=== PATIENT | male | born 1930 | race Caucasian/White ===

== ENCOUNTER 2017-09-05 20:09 | Emergency (ER) | payer OTHER ==
[~2017-09-05] VITALS: Ht 165.1 cm; Wt 78.6 kg
[2017-09-05 21:03] LABS: APPEARANCE SL.HAZY ((CLEAR)); BILIRUBIN NEGATIVE; BLOOD MODERATE; COLOR YELLOW ((YELLOW)); GLUCOSE (STRIP) NEGATIVE; KETONES NEGATIVE; LEUKOCYTES MODERATE; NITRITE NEGATIVE; PROTEIN (STRIP) 30; SPECIFIC GRAVITY 1.017 (1.000-1.030); UROBILINOGEN 0.2 MG/DL (0.2-1.0)
[2017-09-05 21:24] LABS: BACTERIA 2+ /HPF; EPITHELIAL CELLS NONE SEEN /HPF; MUCUS 1+ /LPF; OTHER SPERM CELLS; UCUL ADDED? YES; WHITE BLOOD CELLS 15-20 /HPF (0-5)
[2017-09-05 22:32] LABS: HEMATOCRIT 27.2 % (38.0-50.0); HEMOGLOBIN 8.6 G/DL (12.5-16.6); MCH 27.5 PG (29.0-34.0); MCHC 31.6 G/DL (30.0-36.0); MCV 86.9 FL (86-99); PLATELET COUNT 196 K/uL (156-360); RBC DIS.WIDTH-CV 18.4 % (11.8-14.6); RBC DIS.WIDTH-SD 58.2 % (39-53); RED BLOOD COUNT 3.13 M/uL (4.00-5.50); WHITE BLOOD COUNT 13.5 K/uL (4.1-10.2)
[2017-09-05 22:41] LABS: CHLORIDE 103 mEq/L (99-109); POTASSIUM 4.5 mEq/L (3.7-5.4); SODIUM 135 mEq/L (136-147)
[2017-09-05 22:42] LABS: GLUCOSE 119 mg/dL (70-99)
[2017-09-05 22:46] LABS: CREATININE 1.4 mg/dL (0.6-1.3); GFR ESTIMATE (CALCULATED) 51 mL/min/ (58.99-99999)
[2017-09-05 22:47] LABS: UREA NITROGEN (BUN) 26 mg/dL (9-23)
[2017-09-06] MEDS ORDERED: CIPRO500 MG PO (00:22)
[2017-09-06 00:47] VITALS: BP 98/61
== END 2017-09-06 00:48 | disposition home or self-care (01) ==
LOC: EME 20:09 → EXP 20:09
PROVIDERS: Physician Assistant Medical
DX: N39.0 Urinary tract infection, site not specified (principal); Z95.2 Presence of prosthetic heart valve
CPT/HCPCS: 80048; 81003; 85027; 87086; 99281; 99284; J0696

== ENCOUNTER 2017-09-08 17:06 | Emergency (ER) | payer OTHER ==
[~2017-09-08] VITALS: Ht 170.2 cm; Wt 74.1 kg
[~2017-09-08 17:06] MED LIST: CIPRO500 MG PO
[2017-09-08 17:58] LABS: BASOPHIL (%) 0.3 % (0-1); EOSINOPHIL (%) 0.9 % (0-5); EOSINOPHIL COUNT 0.1 K/uL (0-0.3); HEMATOCRIT 26.5 % (38.0-50.0); HEMOGLOBIN 8.4 G/DL (12.5-16.6); LYMPHOCYTE (%) 11.8 % (15-42); LYMPHOCYTE COUNT 1.4 K/uL (1.0-2.8); MCH 27.5 PG (29.0-34.0); MCHC 31.7 G/DL (30.0-36.0); MCV 86.6 FL (86-99); MONOCYTE (%) 10.3 % (3-12); MONOCYTE COUNT 1.2 K/uL (0-0.8); NEUTROPHIL (%) 75.7 % (45-76); NEUTROPHIL COUNT 8.9 K/uL (1.8-6.4); NRBC (%) 0.2 /100 WBC (0-0); PLATELET COUNT 166 K/uL (156-360); RBC DIS.WIDTH-CV 18.8 % (11.8-14.6); RBC DIS.WIDTH-SD 59.7 % (39-53); RED BLOOD COUNT 3.06 M/uL (4.00-5.50); WHITE BLOOD COUNT 11.8 K/uL (4.1-10.2)
[2017-09-08 18:07] LABS: ALBUMIN 3.7 g/dL (3.2-4.8); CHLORIDE 101 mEq/L (99-109); POTASSIUM 4.2 mEq/L (3.7-5.4); SODIUM 133 mEq/L (136-147)
[2017-09-08 18:08] LABS: MAGNESIUM 1.9 mg/dL (1.3-2.7)
[2017-09-08 18:10] LABS: GLUCOSE 105 mg/dL (70-99); TOTAL PROTEIN 7.1 g/dL (6.4-8.3)
[2017-09-08 18:12] LABS: TOTAL BILIRUBIN 1.1 mg/dL (0.0-1.0)
[2017-09-08 18:13] LABS: ALKALINE PHOSPHATASE 107 IU/L (3-129); CREATININE 1.4 mg/dL (0.6-1.3); GFR ESTIMATE (CALCULATED) 51 mL/min/ (58.99-99999)
[2017-09-08 18:14] LABS: UREA NITROGEN (BUN) 22 mg/dL (9-23)
[2017-09-08 18:15] LABS: AST (GOT) 27 IU/L (2-34)
[2017-09-08 18:16] LABS: ALT (GPT) 8 IU/L (3-49)
[2017-09-08 18:19] LABS: TROP-I INTERPRETATION NEGATIVE; TROPONIN-I 0.13 ng/mL (0.0-0.30)
[2017-09-08 20:07] VITALS: BP 110/77
== END 2017-09-08 20:08 | disposition home or self-care (01) ==
LOC: EME 17:06
PROVIDERS: Emergency Medicine
DX: R06.02 Shortness of breath (principal); I34.9 Nonrheumatic mitral valve disorder, unspecified; E78.5 Hyperlipidemia, unspecified; I10 Essential (primary) hypertension; I48.91 Unspecified atrial fibrillation; Z98.890 Other specified postprocedural states; M10.9 Gout, unspecified
CPT/HCPCS: 71046; 80053; 83605; 83735; 83880; 84484; 85025; 93005

== ENCOUNTER 2017-09-08 23:05 | Observation (INO) | payer OTHER ==
[~2017-09-08] VITALS: Ht 170.2 cm; Wt 75.2 kg
[2017-09-09 00:04] LABS: HEMATOCRIT 26.1 % (38.0-50.0); HEMOGLOBIN 8.3 G/DL (12.5-16.6); MCH 27.3 PG (29.0-34.0); MCHC 31.8 G/DL (30.0-36.0); MCV 85.9 FL (86-99); NRBC (%) 0.3 /100 WBC (0-0); PLATELET COUNT 162 K/uL (156-360); RBC DIS.WIDTH-CV 18.7 % (11.8-14.6); RBC DIS.WIDTH-SD 58.2 % (39-53); RED BLOOD COUNT 3.04 M/uL (4.00-5.50); WHITE BLOOD COUNT 10.9 K/uL (4.1-10.2)
[2017-09-09 00:10] LABS: INTER. NORMALIZED RATIO 1.9
[2017-09-09 00:12] LABS: PTT 29.1 SEC (25-37)
[2017-09-09 00:18] LABS: CHLORIDE 101 mEq/L (99-109); POTASSIUM 4.3 mEq/L (3.7-5.4); SODIUM 133 mEq/L (136-147)
[2017-09-09 00:19] LABS: GLUCOSE 113 mg/dL (70-99)
[2017-09-09 00:23] LABS: CREATININE 1.4 mg/dL (0.6-1.3); GFR ESTIMATE (CALCULATED) 51 mL/min/ (58.99-99999)
[2017-09-09 00:24] LABS: UREA NITROGEN (BUN) 24 mg/dL (9-23)
[2017-09-09 05:00] VITALS: BP 120/78
[2017-09-09 05:34] LABS: HEMATOCRIT 26.8 % (38.0-50.0); HEMOGLOBIN 8.3 G/DL (12.5-16.6); MCH 27.1 PG (29.0-34.0); MCV 87.6 FL (86-99); NRBC (%) 0.2 /100 WBC (0-0); PLATELET COUNT 172 K/uL (156-360); RBC DIS.WIDTH-CV 18.8 % (11.8-14.6); RBC DIS.WIDTH-SD 60.3 % (39-53); RED BLOOD COUNT 3.06 M/uL (4.00-5.50); WHITE BLOOD COUNT 9.4 K/uL (4.1-10.2)
[2017-09-09 08:10] VITALS: BP 121/79
[2017-09-09 11:24] VITALS: BP 105/62
[2017-09-09 16:40] VITALS: BP 123/74
[2017-09-09 19:45] LABS: HEMATOCRIT 29.1 % (38.0-50.0); HEMOGLOBIN 9.1 G/DL (12.5-16.6); MCV 88.2 FL (86-99)
[2017-09-09 20:00] VITALS: BP 136/89
[2017-09-10] VITALS: BP 96/67
[2017-09-10 04:29] VITALS: BP 107/49
[2017-09-10 05:10] LABS: HEMATOCRIT 27.5 % (38.0-50.0); HEMOGLOBIN 8.6 G/DL (12.5-16.6); MCH 27.4 PG (29.0-34.0); MCHC 31.3 G/DL (30.0-36.0); MCV 87.6 FL (86-99); NRBC (%) 0.2 /100 WBC (0-0); PLATELET COUNT 160 K/uL (156-360); RBC DIS.WIDTH-CV 18.9 % (11.8-14.6); RBC DIS.WIDTH-SD 59.7 % (39-53); RED BLOOD COUNT 3.14 M/uL (4.00-5.50); WHITE BLOOD COUNT 9.7 K/uL (4.1-10.2)
[2017-09-10 05:44] LABS: INTER. NORMALIZED RATIO 1.7
[2017-09-10 05:46] LABS: PTT 30.8 SEC (25-37)
[2017-09-10 06:04] LABS: ALBUMIN 3.5 G/DL (3.2-4.8); CHLORIDE 102 MEQ/L (99-109); CREATININE 1.1 MG/DL (0.6-1.3); GFR ESTIMATE (CALCULATED) > 59 mL/min/ (58.99-99999); GLUCOSE 109 mg/dL (70-99); PHOSPHORUS 3.6 mg/dL (2.5-4.9); POTASSIUM 4.3 MEQ/L (3.7-5.4); SODIUM 134 MEQ/L (136-147); UREA NITROGEN (BUN) 20 mg/dL (9-23)
[2017-09-10 10:00] VITALS: BP 126/59
[2017-09-10 11:16] VITALS: BP 122/78
[2017-09-10] MEDS ORDERED: TOPROL XL25 MG PO (15:27)
[2017-09-10] MEDS ORDERED: ASCORBIC ACID500 M3 PO (15:27)
[2017-09-10] MEDS ORDERED: CIPRO500 MG PO (15:27)
[2017-09-10] MEDS ORDERED: PRINIVIL5 MG PO (15:27)
[2017-09-10] MEDS ORDERED: FLOMAX0.4 MG PO (15:28)
[2017-09-10] MEDS ORDERED: LASIX40 MG PO (15:28)
[2017-09-10] MEDS ORDERED: LIPITOR20 MG PO (15:28)
[2017-09-10] MEDS ORDERED: MIRALAX17 GM PO (15:29)
[2017-09-10] MEDS ORDERED: K-DUR20 MEQ PO (15:29)
[2017-09-10] MEDS ORDERED: ZYLOPRIM100 MG PO (15:29)
[2017-09-10] MEDS ORDERED: COUMADIN3 MG PO (15:30)
[2017-09-10] MEDS ORDERED: VITAMIN D2000 UNIT PO (15:30)
[2017-09-10 19:30] VITALS: BP 138/99
[2017-09-10 20:39] LABS: HEMATOCRIT 27.2 % (38.0-50.0); HEMOGLOBIN 8.3 G/DL (12.5-16.6)
[2017-09-11 01:22] VITALS: BP 88/52
[2017-09-11 04:58] VITALS: BP 104/70
[2017-09-11 06:01] LABS: HEMATOCRIT 25.7 % (38.0-50.0); HEMOGLOBIN 7.8 G/DL (12.5-16.6); MCH 26.7 PG (29.0-34.0); MCHC 30.4 G/DL (30.0-36.0); NRBC (%) 0.2 /100 WBC (0-0); PLATELET COUNT 165 K/uL (156-360); RBC DIS.WIDTH-CV 18.9 % (11.8-14.6); RBC DIS.WIDTH-SD 59.9 % (39-53); RED BLOOD COUNT 2.92 M/uL (4.00-5.50); WHITE BLOOD COUNT 8.6 K/uL (4.1-10.2)
[2017-09-11 06:18] LABS: INTER. NORMALIZED RATIO 1.8
[2017-09-11 06:44] LABS: ALBUMIN 3.2 G/DL (3.2-4.8); CHLORIDE 104 MEQ/L (99-109); CREATININE 1.4 MG/DL (0.6-1.3); GFR ESTIMATE (CALCULATED) 51 mL/min/ (58.99-99999); GLUCOSE 84 mg/dL (70-99); PHOSPHORUS 3.9 mg/dL (2.5-4.9); POTASSIUM 4.2 MEQ/L (3.7-5.4); SODIUM 137 MEQ/L (136-147); UREA NITROGEN (BUN) 23 mg/dL (9-23)
[2017-09-11 09:51] VITALS: BP 113/75
[2017-09-11 11:25] VITALS: BP 93/66
[2017-09-11 13:10] LABS: HEMATOCRIT 25.4 % (38.0-50.0); HEMOGLOBIN 7.8 G/DL (12.5-16.6); MCV 88.2 FL (86-99)
== END 2017-09-11 15:18 | disposition home or self-care (01) ==
LOC: EME → EDBD 23:05 → EME 23:05 → EDOF 09-09 02:47 → 5WEST 09-09 02:47 → ENRESERV 09-09 02:52 → 5WEST 09-09 04:49
PROVIDERS: Emergency Medicine; Hospitalist; Internal Medicine Gastroenterology; Nurse Practitioner Family
DX: K62.5 Hemorrhage of anus and rectum (principal); D64.9 Anemia, unspecified; Z79.01 Long term (current) use of anticoagulants; I48.91 Unspecified atrial fibrillation; I34.0 Nonrheumatic mitral (valve) insufficiency; K44.9 Diaphragmatic hernia without obstruction or gangrene; K22.2 Esophageal obstruction; K57.30 Diverticulosis of large intestine without perforation or abscess without bleeding; K64.9 Unspecified hemorrhoids; K64.8 Other hemorrhoids; N39.0 Urinary tract infection, site not specified
CPT/HCPCS: 74176; 80048; 80069; 85014; 85018; 85027; 85610; 85730; 86850; 86900; 86901; 88305; 88342 TC; 93005; 99281; 99285; C9113; G0378; J7120

== ENCOUNTER 2018-01-03 09:41 | Emergency (ER) | payer OTHER ==
[~2018-01-03] VITALS: Ht 172.7 cm; Wt 75.0 kg
[~2018-01-03 09:41] MED LIST changes: +ASCORBIC ACID500 M3 PO; +COUMADIN3 MG PO; +FLOMAX0.4 MG PO; +K-DUR20 MEQ PO; +LASIX40 MG PO; +LIPITOR20 MG PO; +MIRALAX17 GM PO; +PRINIVIL5 MG PO; +TOPROL XL25 MG PO; +VITAMIN D2000 UNIT PO; +ZYLOPRIM100 MG PO
[2018-01-03 11:09] LABS: HEMATOCRIT 28.4 % (38.0-50.0); HEMOGLOBIN 8.8 G/DL (12.5-16.6); MCH 26.7 PG (29.0-34.0); MCV 86.3 FL (86-99); NRBC (%) 0.4 /100 WBC (0-0); PLATELET COUNT 196 K/uL (156-360); RBC DIS.WIDTH-CV 20.7 % (11.8-14.6); RBC DIS.WIDTH-SD 64.6 % (39-53); RED BLOOD COUNT 3.29 M/uL (4.00-5.50); WHITE BLOOD COUNT 8.3 K/uL (4.1-10.2)
[2018-01-03 11:16] LABS: INTER. NORMALIZED RATIO 2.4
[2018-01-03 11:17] LABS: CHLORIDE 101 mEq/L (99-109); POTASSIUM 4.2 mEq/L (3.7-5.4); SODIUM 136 mEq/L (136-147)
[2018-01-03 11:19] LABS: GLUCOSE 99 mg/dL (70-99); PTT 35.4 SEC (25-37)
[2018-01-03 11:23] LABS: CREATININE 1.3 mg/dL (0.6-1.3); GFR ESTIMATE (CALCULATED) 56 mL/min/ (58.99-99999)
[2018-01-03 11:24] LABS: UREA NITROGEN (BUN) 19 mg/dL (9-23)
[2018-01-03 14:30] VITALS: BP 120/81
== END 2018-01-03 14:31 | disposition home or self-care (01) ==
LOC: EME 09:41
PROVIDERS: Family Medicine; Nurse Practitioner Family
DX: S70.01XA Contusion of right hip, initial encounter (principal); W17.89XA Other fall from one level to another, initial encounter; I48.91 Unspecified atrial fibrillation; D64.9 Anemia, unspecified; M16.0 Bilateral primary osteoarthritis of hip; Z79.01 Long term (current) use of anticoagulants
CPT/HCPCS: 73522; 80048; 85027; 85610; 85730; 93005; 99281; 99284; G8978 GP CI; G8979 GP CI; G8980 GP CI

== ENCOUNTER 2018-02-11 14:07 | Emergency (ER) | payer OTHER ==
[~2018-02-11] VITALS: Ht 172.7 cm; Wt 77.2 kg
[2018-02-11 14:52] LABS: HEMATOCRIT 28.9 % (38.0-50.0); MCH 26.8 PG (29.0-34.0); MCHC 31.1 G/DL (30.0-36.0); NRBC (%) 0.2 /100 WBC (0-0); PLATELET COUNT 209 K/uL (156-360); RBC DIS.WIDTH-SD 65.5 % (39-53); RED BLOOD COUNT 3.36 M/uL (4.00-5.50); WHITE BLOOD COUNT 8.7 K/uL (4.1-10.2)
[2018-02-11 15:00] LABS: CHLORIDE 100 mEq/L (99-109); SODIUM 134 mEq/L (136-147)
[2018-02-11 15:02] LABS: GLUCOSE 106 mg/dL (70-99); TOTAL PROTEIN 7.8 g/dL (6.4-8.3)
[2018-02-11 15:04] LABS: TOTAL BILIRUBIN 1.5 mg/dL (0.0-1.0)
[2018-02-11 15:05] LABS: ALKALINE PHOSPHATASE 193 IU/L (3-129); SERUM ETHYL ALCOHOL < 10 mg/dL
[2018-02-11 15:06] LABS: CREATININE 1.4 mg/dL (0.6-1.3); GFR ESTIMATE (CALCULATED) 51 mL/min/ (58.99-99999)
[2018-02-11 15:07] LABS: AST (GOT) 21 IU/L (2-34); UREA NITROGEN (BUN) 17 mg/dL (9-23)
[2018-02-11 15:09] LABS: ALT (GPT) 9 IU/L (3-49)
[2018-02-11 15:40] LABS: APPEARANCE CLEAR ((CLEAR)); BILIRUBIN NEGATIVE; BLOOD NEGATIVE; COLOR YELLOW ((YELLOW)); GLUCOSE (STRIP) NEGATIVE; KETONES NEGATIVE; LEUKOCYTES NEGATIVE; NITRITE NEGATIVE; PROTEIN (STRIP) NEGATIVE; SPECIFIC GRAVITY 1.013 (1.000-1.030)
[2018-02-11 15:48] LABS: AMPHETAMINE NEGATIVE (500 ng/mL); BARBITURATES NEGATIVE (200 ng/mL); BENZODIAZEPINES NEGATIVE (150 ng/mL); BUPRENORPHINE NEGATIVE (10 ng/mL); COCAINE NEGATIVE (150 ng/mL); METHADONE NEGATIVE (200 ng/mL); METHAMPHETAMINE NEGATIVE (500 ng/mL); OPIATES (MORPHINE) NEGATIVE (100 ng/mL); OXYCODONE NEGATIVE (100 ng/mL); PHENCYCLIDINE NEGATIVE (25 ng/mL); PROPOXYPHENE NEGATIVE (300 ng/mL); THC CANNABINOIDS NEGATIVE (50 ng/mL); TRICYCLIC ANTIDEPRESSANTS NEGATIVE (300 ng/mL)
[2018-02-11 16:09] VITALS: BP 137/66
== END 2018-02-11 16:18 | disposition home or self-care (01) ==
LOC: EME 14:07
PROVIDERS: Emergency Medicine
DX: F03.90 Unspecified dementia, unspecified severity, without behavioral disturbance, psychotic disturbance, mood disturbance, and anxiety (principal); F43.25 Adjustment disorder with mixed disturbance of emotions and conduct; Z04.6 Encounter for general psychiatric examination, requested by authority
CPT/HCPCS: 80053; 81003; 85027; 90837; 99281; 99283; G0480